=== PATIENT | female | born 2005 | race Two or more races ===

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

== ENCOUNTER 2024-01-05 20:16 | Outpatient (CLI) | payer OTHER, MEDICAID ==
[2024-01-05 20:44] VITALS: BP 111/74
[2024-01-05 20:59] LABS: BILIRUBIN,URINE NEGATIVE (NEGATIVE); GLUCOSE, URINE (UA) NEGATIVE (NEGATIVE); KETONES,URINE (UA) NEGATIVE (NEGATIVE); LEUKOCYTE ESTERASE, URINE NEGATIVE (NEGATIVE); NITRITE,URINE NEGATIVE (NEGATIVE); OCCULT BLOOD,URINE NEGATIVE (NEGATIVE); PROTEIN,URINE NEGATIVE (NEGATIVE); UROBILINOGEN,URINE 0.2 (NORMAL) E.U./dL (NORMAL)
[2024-01-05 21:00] LABS: CLARITY,URINE CLEAR (CLEAR)
--- NOTE | 2024-01-05 21:37 | PROVIDER PROGRESS NOTE ---
- HPI Chief Complaint: Labor (Also n/v.) Current : 18 yo G1 with IUP at 34+ weeks. presents with cramping, n/v. last vomited about 1 hr prior to when she came in. Has not been vomiting for a long time but was enough to have zofran and phenergan rx at home. She is here today with her aunt who has never had children. She just did not feel well today. no bleeding, headache, swelling. baby moving well. no unusual vaginal discharge and then did pass some phelgm-like discharge today and wonders if it is her mucus plug. some pressure but nothing that sounds like contractions. c/b obesity. She is on fluoxetine and just increased the dose. seems this is helping her. Vital Signs Temperature 97.5 F L 01/05/24 20:37 Heart Rate 95 01/05/24 20:37 Respiratory Rate 18 01/05/24 20:37 Blood Pressure 111/74 01/05/24 20:37 - Exam Patient is resting in stretcher, drinking water and says she is tolerating that fine. abdomen is soft not tender. uterus is not tender or firm. no contractions seen on monitor. Urine with specific gravity 1.020. everything else negative. - Procedures OB Procedure Performed: NST Diagnosis/Indication for NST: labor NST Procedure: NST with normal baseline. Reactive for of 32 weeks gestation or more. NST tracing contains at least two heart rate accelerations that are at le ast 15 beats per minute above the baseline rate and lasting at least 15 seconds from onset to return to baseline within a twenty minute period. Service Date of procedure: 01/05/24 Findings: reassuring that she does not seem to be dehydrated significantly, although a bit dry. She does not seem to be in labor. reassured. encouraged to take her zofran if needed. She says her heartburn is bothersome and she has famotidine and tums and she is encouraged to take these so she feels better. encouraged to call if she has questions even after hours we will always be able to be reached. - Plan Plan: routine care. next visit on Saturday.
== END 2024-01-05 21:35 | disposition home or self-care (01) ==
LOC: WFO 20:16 → FBP 20:19 → WFO 21:35
PROVIDERS: ATTEND Obstetrics & Gynecology
DX: O21.2 Late vomiting of pregnancy (principal); O99.891 Other specified diseases and conditions complicating pregnancy; R12 Heartburn; O99.213 Obesity complicating pregnancy, third trimester; Z3A.34 34 weeks gestation of pregnancy
CPT/HCPCS: 59025; 81003; 99213

== ENCOUNTER 2024-01-24 16:03 | Outpatient (CLI) | payer OTHER, MEDICAID ==
[2024-01-24 16:35] LABS: BASOPHILS % (AUTO) 0.3 %; EOSINOPHILS # (AUTO) 0.2 10^3/uL (0.0-0.7); EOSINOPHILS % (AUTO) 1.7 %; HCT - HEMATOCRIT 35.7 % (37.0-47.0); LYMPHOCYTES # (AUTO) 2.8 10^3/uL (1.5-3.5); LYMPHOCYTES % (AUTO) 20.2 %; MEAN CORPUSCULAR HEMOGLOBIN 29.9 pg (27.0-31.0); MEAN CORPUSCULAR HGB CONC 33.6 g/dL (32.0-36.0); MEAN CORPUSCULAR VOLUME 88.8 fL (81.0-99.0); MONOCYTES % (AUTO) 7.5 %; NEUTROPHILS # (AUTO) 9.5 10^3/uL (1.5-6.6); NEUTROPHILS % (AUTO) 69.6 %; PLT - PLATELET COUNT 348 10^3/uL (130-450); RED BLOOD COUNT 4.02 10^6/uL (4.20-5.40); RED CELL DISTRIBUTION WIDTH 11.9 % (12.0-15.0); WHITE BLOOD COUNT 13.7 x10^3/uL (4.8-10.8)
[2024-01-24 16:48] LABS: ALBUMIN 3.5 g/dL (3.2-5.5); ALBUMIN/GLOBULIN RATIO 1.2 (1.0-2.2); BILIRUBIN,TOTAL 0.2 mg/dL (0.2-1.0); CALCIUM 8.8 mg/dL (8.5-10.3); CREATININE 0.5 mg/dL (0.6-1.3); POTASSIUM 3.9 mmol/L (3.5-4.5); TOTAL PROTEIN 6.4 g/dL (6.4-8.9); URIC ACID 6.1 mg/dL (2.3-6.6)
[2024-01-24 16:50] LABS: CREATININE,URINE 239.5 mg/dL; PROTEIN/CREATININE RATIO,URINE 0.1 (<=0.2)
== END 2024-01-24 16:04 | disposition home or self-care (01) ==
LOC: LAB 16:03
PROVIDERS: ATTEND Nurse Practitioner
DX: R03.0 Elevated blood-pressure reading, without diagnosis of hypertension (principal)
CPT/HCPCS: 36415; 80053; 82570; 83615; 84156; 84550; 85025

== ENCOUNTER 2024-01-28 14:23 | Outpatient (CLI) | payer OTHER, MEDICAID ==
--- NOTE | 2024-01-28 19:25 | Ultrasound Report ---
PROCEDURE: OB Follow up INDICATIONS: OBESITY OUTSIDE/PRIOR DATING DATA: Last menstrual period (LMP): 05/03/2023. LMP-based estimated date of delivery (TAZ): 02/07/2024. First dating scan (date and location): 06/25/2023. Estimated date of delivery (TAZ) from first dating scan: 02/13/2024. The below data below was generated using the working TAZ of 02/13/2024 TECHNIQUE: Real-time scanning was performed of the fetus, with image documentation and biometric measurements. Endovaginal scanning: Not performed. COMPARISON: 10/14/2023, 06/25/2023 FINDINGS: General: A single living intrauterine gestation is present. Presentation: Vertex Placenta: Placental position is anterior, without previa. Amniotic fluid index: 13.2 cm, within normal limits for gestational age. heart rate: 132 beats per minute. Maternal cervical canal: Closed and measures 3.36 cm long; normal length is 2.5 cm or more. biometrics: Biparietal diameter: 8.97 cm, 36 weeks, 2 days, 31.9% Head circumference: 32.6 cm, 37 weeks, 0 day, 14.6% Abdominal circumference: 31.9 cm, 35 weeks, 6 days, 16% Femur length: 7.2 cm, 36 weeks, 6 days, 29.8% Estimated gestational age from initial scan: 37 weeks, 5 days Composite gestational age from present scan: 36 weeks, 4 days Estimated weight and percentile: 2897 g, 24.4% Measurement variability in biometric dating: +/- 10 days from 12-20 weeks gestation, +/- 2 weeks from 20-30 weeks gestation, +/- 3 weeks at 30 weeks gestation or more. Other: Not applicable. IMPRESSION: 1. Single live intrauterine gestation with fetus in vertex presentation. heart rate is 132 bpm. Normal amount of amniotic fluid. LALITA equals 13.2 cm. 2. Estimated weight is at 24.4%. Reviewed by: Leonard Hicks MD on 01/28/2024 7:23 PM PDT Approved by: Leonard Hicks MD on 01/28/2024 7:23 PM PDT Station ID: [id number]
== END 2024-01-28 14:24 | disposition home or self-care (01) ==
LOC: DI 14:23
PROVIDERS: ATTEND Nurse Practitioner
DX: O99.213 Obesity complicating pregnancy, third trimester (principal); O26.843 Uterine size-date discrepancy, third trimester; Z3A.36 36 weeks gestation of pregnancy

== ENCOUNTER 2024-02-08 03:53 | Inpatient (IN) | payer OTHER, MEDICAID ==
[2024-02-08] MEDS ORDERED: ONDANSETRON ODT 4 MG TABLET TL PRN (05:58)
[2024-02-08] MEDS ORDERED: miSOPROStoL 200 MCG TABLET BC PRN (06:02)
[2024-02-08] MEDS ORDERED: SODIUM CHLORIDE FLUSH 0.9% 10 ML SYRINGE IVP PRN (06:02)
[2024-02-08] MEDS ORDERED: TERBUTALINE 1 MG/ML VIAL SUBQ PRN (06:02)
[2024-02-08] MEDS ORDERED: LABETALOL 20 MG/4 ML SYRINGE IVP PRN ×3 (06:02)
[2024-02-08] MEDS ORDERED: hydrALAZINE INJ 20 MG/ML VIAL IVP PRN ×2 (06:02)
[2024-02-08] MEDS ORDERED: miSOPROStoL 200 MCG TABLET PR PRN (06:02)
[2024-02-08] MEDS ORDERED: METHYLERGONOVINE 0.2 MG/ML VIAL IM PRN (06:02)
[2024-02-08] MEDS ORDERED: TRANEXAMIC ACID IN NACL 1,000 MG/100 ML BAG IV PRN (06:02)
[2024-02-08] MEDS ORDERED: CARBOPROST TROMETHAMINE 250 MCG/ML VIAL IM PRN (06:02)
[2024-02-08] MEDS ORDERED: NIFEdipine 10 MG CAPSULE PO PRN (06:02)
[2024-02-08] MEDS ORDERED: OXYTOCIN 10 UNIT/ML VIAL IM PRN (06:02)
[2024-02-08] MEDS: LACTATED RINGERS 1,000 ML IV PRN (06:22)
[2024-02-08] MEDS: fentaNYL 100 MCG/2 ML VIAL IVP PRN (06:22)
[2024-02-08] MEDS ORDERED: ONDANSETRON 4 MG/2 ML VIAL ONE (06:27)
[2024-02-08 06:35] LABS: BASOPHILS # (AUTO) 0.1 10^3/uL (0.0-0.1); BASOPHILS % (AUTO) 0.4 %; EOSINOPHILS # (AUTO) 0.1 10^3/uL (0.0-0.7); EOSINOPHILS % (AUTO) 0.6 %; HCT - HEMATOCRIT 40.9 % (37.0-47.0); HGB - HEMOGLOBIN 13.8 g/dL (12.0-16.0); LYMPHOCYTES # (AUTO) 3.3 10^3/uL (1.5-3.5); LYMPHOCYTES % (AUTO) 16.4 %; MEAN CORPUSCULAR HEMOGLOBIN 29.7 pg (27.0-31.0); MEAN CORPUSCULAR HGB CONC 33.7 g/dL (32.0-36.0); MEAN CORPUSCULAR VOLUME 88.1 fL (81.0-99.0); MEAN PLATELET VOLUME 10.9 fL (7.9-10.8); MONOCYTES # (AUTO) 1.2 10^3/uL (0.0-1.0); MONOCYTES % (AUTO) 5.9 %; NEUTROPHILS # (AUTO) 15.1 10^3/uL (1.5-6.6); PLT - PLATELET COUNT 411 10^3/uL (130-450); RED BLOOD COUNT 4.64 10^6/uL (4.20-5.40); RED CELL DISTRIBUTION WIDTH 12.3 % (12.0-15.0); WHITE BLOOD COUNT 19.8 x10^3/uL (4.8-10.8)
[2024-02-08] MEDS ORDERED: ONDANSETRON 4 MG/2 ML VIAL IVP PRN ×3 (06:35→15:13)
[2024-02-08] MEDS ORDERED: LIDOCAINE 2%-EPI 1:100000 20 ML MDV ONE (06:53)
[2024-02-08] MEDS ORDERED: ROPIVACAINE 0.2% 200 MG/100 ML BAG EP ONE (06:53)
[2024-02-08 07:00] LABS: ALBUMIN/GLOBULIN RATIO 1.2 (1.0-2.2); BILIRUBIN,TOTAL 0.4 mg/dL (0.2-1.0); CALCIUM 9.4 mg/dL (8.5-10.3); CREATININE 0.7 mg/dL (0.6-1.3); POTASSIUM 3.8 mmol/L (3.5-4.5); TOTAL PROTEIN 7.4 g/dL (6.4-8.9)
[2024-02-08] MEDS ORDERED: SODIUM CHLORIDE FLUSH 0.9% 10 ML SYRINGE IVP SCH (07:00)
[2024-02-08] MEDS ORDERED: NALOXONE 0.4 MG/ML VIAL IVP PRN (07:45)
[2024-02-08] MEDS ORDERED: ROPIVACAINE 0.2% 200 MG/100 ML BAG EP PRN (07:45)
[2024-02-08] MEDS ORDERED: diphenhydrAMINE INJ 50 MG/ML VIAL IVP PRN (07:45)
[2024-02-08] MEDS ORDERED: ePHEDrine 50 MG/ML VIAL IVP PRN (07:45)
[2024-02-08] MEDS ORDERED: NALBUPHINE 10 MG/ML AMP IVP PRN (07:45)
[2024-02-08] MEDS ORDERED: METOCLOPRAMIDE 10 MG/2 ML VIAL IVP PRN (07:45)
--- NOTE | 2024-02-08 07:53 | ANESTHESIA ---
Pre-Anesthesia VS, & Labs - Diagnosis labor pain - Procedure labor epidural Vital Signs: Temp Pulse Resp BP Pulse Ox O2 Flow Rate 36.9 C 83 20 131/77 H 02/08/24 05:12 02/08/24 04:06 02/08/24 04:06 02/08/24 04:06 Height: 5 ft 5 in Weight (kg): 106.594 kg Body Mass Index: 39.1 BMI Classification: Obese - NPO Other - Is Patient ?: Yes - Lab Results Current Lab Results: Laboratory Tests 02/08/24 06:19: Sodium 134 L, Potassium 3.8, Chloride 103, Carbon Dioxide 19 L, Anion Gap 12.0, BUN 10, Creatinine 0.7, Estimated GFR (MDRD) 108, Glucose 86, Calcium 9.4, Total Bilirubin 0.4, AST 20, ALT 15, Alkaline Phosphatase 191 H, Total Protein 7.4, Albumin 4.0, Globulin 3.4, Albumin/Globulin Ratio 1.2 02/08/24 06:19: WBC 19.8 H, RBC 4.64, Hgb 13.8, Hct 40.9, MCV 88.1, MCH 29.7, MCHC 33.7, RDW 12.3, Plt Count 411, MPV 10.9 H, Neut # (Auto) 15.1 H, Lymph # (Auto) 3.3, [place] # (Auto) 1.2 H, Eos # (Auto) 0.1, Baso # (Auto) 0.1, Absolute Nucleated RBC 0.00, Nucleated RBC % 0.0 02/08/24 06:19: TSH 2.66 Fish Bones: 02/08/24 06:19 02/08/24 06:19 Home Medications and Allergies Active Medications Carboprost Tromethamine (Carboprost Tromethamine 250 Mcg/Ml Vial) 250 mcg IM .ONCE PRN PRN Reason: Hemorrhage Fentanyl (Fentanyl 100 Mcg/2 Ml Vial) 50 mcg IVP Q1H PRN PRN Reason: Severe Pain (score 7-10) Last Admin: 02/08/24 06:22 Dose: 50 mcg Hydralazine HCl (Hydralazine Inj 20 Mg/Ml Vial) 5 - 10 mg IVP Q20M PRN; Protocol PRN Reason: SBP> or= 160 OR DBP> or= 110 Hydralazine HCl (Hydralazine Inj 20 Mg/Ml Vial) 10 mg IVP .ONCE PRN; Protocol PRN Reason: SBP> or= 160 OR DBP> or= 110 Lactated Ringer's (Lr) 500 mls @ 999 mls/hr IV PRN PRN PRN Reason: distress Last Admin: 02/08/24 07:22 Dose: 125 mls/hr Oxytocin/Sodium Chloride (Pitocin/Sodium Chloride) 500 mls @ 999 mls/hr IV PRN PRN; Protocol PRN Reason: POST- HEMORR PREVENTION Tranexamic Acid (Tranexamic 1,000 Mg/100ml-Nacl) 1,000 mg in 100 mls @ 600 mls/hr IV Q30M PRN PRN Reason: EBL >1200mL and within 3hr Labetalol HCl (Labetalol 20 Mg/4 Ml Syringe) 20 - 80 mg IVP Q10M PRN; Protocol PRN Reason: SBP> or= 160 OR DBP> or= 110 Labetalol HCl (Labetalol 20 Mg/4 Ml Syringe) 20 mg IVP .ONCE PRN; Protocol PRN Reason: SBP> or= 160 OR DBP> or= 110 Labetalol HCl (Labetalol 20 Mg/4 Ml Syringe) 20 - 40 mg IVP Q10M PRN; Protocol PRN Reason: SBP> or= 160 OR DBP> or= 110 Lidocaine HCl (Lidocaine 1% 20 Ml Mdv) 20 ml ID .ONCE PRN PRN Reason: PERINEAL REPAIR Stop: 02/11/24 06:03 Methylergonovine Maleate (Methylergonovine 0.2 Mg/Ml Vial) 0.2 mg IM .ONCE PRN PRN Reason: Hemorrhage Misoprostol (Misoprostol 200 Mcg Tablet) 600 mcg BC .ONCE PRN PRN Reason: Hemorrhage Misoprostol (Misoprostol 200 Mcg Tablet) 800 mcg ND .ONCE PRN PRN Reason: Hemorrhage Nifedipine (Nifedipine 10 Mg Capsule) 10 - 20 mg PO Q20M PRN; Protocol PRN Reason: SBP> or= 160 OR DBP> or= 110 Ondansetron HCl (Ondansetron Odt 4 Mg Tablet) 4 mg TL Q4HR PRN PRN Reason: Nausea / Vomiting Ondansetron HCl (Ondansetron 4 Mg/2 Ml Vial) 4 mg IVP Q6HR PRN PRN Reason: Nausea / Vomiting Oxytocin (Oxytocin 10 Unit/Ml Vial) 10 unit IM .ONCE PRN PRN Reason: Step One if no IV access. Sodium Chloride (Sodium Chloride Flush 0.9% 10 Ml Syringe) 10 ml IVP PRN PRN PRN Reason: NEEDED PER PROVIDER ORDERS Sodium Chloride (Sodium Chloride Flush 0.9% 10 Ml Syringe) 10 ml IVP Q8H ANABELA Terbutaline Sulfate (Terbutaline 1 Mg/Ml Vial) 0.25 mg SUBQ .ONCE PRN PRN Reason: Tachystole No122/Iron/Folic Acid [ Multi Tablet] 1 each PO DAILY 07/15/23 FLUoxetine [PROzac] 10 mg PO DAILY 10/26/23 Famotidine [Acid Spa Attendant] 20 mg PO DAILY 10/26/23 Allergies/Adverse Reactions: Allergies Allergy/AdvReac Type Severity Reaction Status Date / Time shrimp Allergy Unknown Verified 11/19/23 18:53 Anes History & Medical History - Anesthetic History Anesthesia Complications: reports: No previous complications Family history of Anesthesia Complications: Denies Family history of Malignant Hyperthermia: Denies - Medical History Cardiovascular: reports: None Pulmonary: reports: Asthma Gastrointestinal: reports: GERD Urinary: reports: None Neuro: reports: Headaches Musculoskeletal: reports: None Endocrine/Autoimmune: reports: Type 2 diabetes Blood Disorders: reports: None Skin: reports: None Smoking Status: Never smoker Psychosocial: reports: No issues indicated History of Cancer?: No - Surgical History Eyes Ears Nose Throat (EENT): reports: Tonsil/Adenoidectomy Exam General: Alert, Oriented x3, Cooperative Dental: WNL Mouth Openin Fingerbreadth Neck Mobility: Normal Mallampati classification: III Thyromental Distance: 4-6 cm Respiratory: Lungs clear Cardiovascular: Regular rate Plan Anesthesia Type: Epidural Consent for Procedure(s) Verified and Reviewed: Yes Code Status: Attempt Resuscitation ASA classification: 2-Mild systemic disease Is this case an emergency?: No
[2024-02-08] MEDS ORDERED: LIDOCAINE-MPF 2% 5 ML VIAL ONE (08:07)
--- NOTE | 2024-02-08 08:31 | HISTORY & PHYSICAL EXAMINATION ---
Admit History - Visit Reason Visit Reason: Contractions - : 1 Parity: 0 Premature: 0 Ectopic: 0 : 0 Care: positive: [facility] Risk/History: positive: None Complications This : positive: None Smoking Status: Never smoker - Mother's Labs Mother's Blood Type: positive: O Mother's RH: positive: Positive GBS: positive: Group B Step Negative Rubella Status: positive: Immune - Other Maternal History Other Maternal History: 18 yo @ 39+2 weeks gestation by 6+5 week ultrasound (inconsistent with LMP) presents to L&D for labor triage at about 0300. Contractions started about 22:00 last night, she was able to sleep just a few hours but the contractions continued to get closer together and more intense. Upon arrival to L&D she was 3cm and progressed quickly to 5cm by 0600 and was admitted for labor. Elevated BP, likely associated with pain. Had elevated BP early in and an additional elevated BP at term. May have an aspect of both chronic hypertension and gestational hypertension however did not meet criteria for either at the time of admission. No right upper quadrant pain, significant headaches or visual disturbances. Nausea, occasional clear emesis. EFW from recent u/s: 01/28/24: 2897 g, 24.4% Maternal weight gain through : 53# Admission labs: serum creatinine: 0.7, AST: 20, ALT: 15, HGB: 13.8, HCT 40.9%, PLT 411 LMP: 05/03/2023 TAZ by LMP: 02/06/2023 06/25/2023 / 6+5/ NOT /C/W dates >5 (6 days) difference at less than 8 6/7 weeks Final TAZ: 02/13/2024 FOB: [place] She has from her parents. Danny is not working. sex: It's A GIRL! Problems: Bipolar disorder, elevated BP at initial OB visit, complicated relationship with FOB. - 12/19: fluoxetine increased to 20mg, referral for counseling obese: taking ld ASA, does not look like we have discussed NSTs with her. Pre- Weight: 185lb BMI: 33.24 Blood type: O+ Antibody: Negative CBC: PLT 308 HCT 38.3 HGB 13.0 RUB: immune VZV: immune HBsAg: Negative HepC: NR RPR/AB-EIA: NR HIV: NR PAP: under 21 GC/CT: 07/19/2023 negative HSV: denies Genetic testing: [id number] ordered but not done. Covid: vaccinated Flu:out of season FAS: WNL Placenta: anterior no previa Cord: 3VC LALITA: WNL EFW: 54.2% 50gm OGCT: 121 TDAP:Given early at 26 weeks 11/07 Breast Pump: 11/22/2023 3rd trimester HCT 34.7 HGB 11.8; PLT 334 GBS/GCCT: 01/17/2024 Negative/ Negative Physical exam: Normocephalic, atraumatic Heart RRR Lungs CTAB Abdomen gravid, soft, nontender. EFW 2900 FHR baseline 140's, moderate variability, + accelerations, no decelerations Contractions palpate moderate every 3-6 minutes with soft resting tone SVE 5cm. vertex. Bilateral LE's no edema Assessment: 18 yo G1POOO @ 39+2 weeks gestation by 6+2 wk U/S Active labor FHR 140, primarily category I, intermittent category II. GBS NEG Plan: Admit to [facility] for Expectant management Continuous monitoring Maintain epidural and communicate with anesthesia for pain management. Anticipate . Patient verbally consents to my participation in her care in my role as a student nurse asset protection detective. ALF Duckworth, Student Nurse Mechanical Design Engineer Products (Stacey Lucas) Agree with plan for patient. Evaluated patient with ALF Lucas. Simba Graham MD (Simba Graham) - HPI Current EDU 02/13/24 Gestation 39 Weeks and 2 Days 1 Vital Signs Temperature 98.4 F 02/08/24 04:06 Heart Rate 83 02/08/24 04:06 Respiratory Rate 20 02/08/24 04:06 Blood Pressure 131/77 H 02/08/24 04:06 Temperature 99.9 F 02/08/24 16:13 Heart Rate 88 02/08/24 16:13 Respiratory Rate 16 02/08/24 16:13 Blood Pressure 126/65 02/08/24 16:13 O2 Saturation If not protocol: Oxygen Flow, liters/minute - NST Procedure NST Procedure Start Time 08:46 Stop Time 09:35 Meds/Allgy - Home Medications Home Medications: Ambulatory Orders Medication Instructions Recorded Confirmed No122/Iron/Folic Acid 1 each PO DAILY 07/15/23 10/26/23 [ Multi Tablet] FLUoxetine [PROzac] 10 mg PO DAILY 10/26/23 10/26/23 Famotidine [Acid Mannequin Refinisher] 20 mg PO DAILY 10/26/23 10/26/23 Aspirin Chewable [St Rk 1 tab PO 02/08/24 Aspirin] - Allergies Allergies/Adverse Reactions: Allergies Allergy/AdvReac Type Severity Reaction Status Date / Time shrimp Allergy Unknown Verified 11/19/23 18:53 Physical - Abdominal Exam Contraction Frequency (min/apart): q2 minutes Contraction Intensity: positive: Strong Uterine Resting Tone: positive: Soft - Monitoring Strip Review: positive: Category I, Category II - Presentation Presentation: positive: Vertex - Vaginal Exam Membranes: positive: Membranes intact Dilation (in cm): 7 Effacement (%): 80 Station: positive: -2 Cervical Position: positive: Anterior - Speculum Exam Speculum Exam Performed: positive: No - Abdominal Exam Vital Signs: Temp Pulse Resp BP Pulse Ox O2 Flow Rate 99.9 F 88 16 126/65 02/08/24 16:13 02/08/24 16:13 02/08/24 16:13 02/08/24 16:13 Plan for Labor - Plan For Labor I expect patient to be DC'd or transferred within 96 hours.: Yes
[2024-02-08] MEDS: OXYTOCIN/SODIUM CHLORIDE 500 ML IV PRN (09:10)
[2024-02-08] MEDS: lidocaine 1% 20 ML MDV ID PRN (09:15)
--- NOTE | 2024-02-08 10:24 | DELIVERY NOTE ---
<Stacey Lucas - Last Filed: 02/08/24 10:26> Delivery Note - Labor Labor: positive: Spontaneous - Infant Delivery Method Delivery Method: positive: Spontaneous vaginal delivery - Presentation Presentation: positive: Vertex, OA - occiput anterior, KIARA - left occiput anterior - Nuchal Cord Nuchal Cord: positive: None - Anesthetic Anesthetic Type: - Amniotic Fluid Description Amniotic Fluid Description: positive: Clear - Episiotomy Type Episiotomy Type: positive: None - Laceration Laceration: positive: None - Delivery Outcome Delivery Outcome: positive: Livebirth - [place] sex: positive: Female - Cord Cord: positive: 3 vessels - Placenta Placenta: positive: Intact, Spontaneous - Estimated Blood Loss Estimated Blood Loss (in cc): 100 - Post Delivery Events Post Delivery Events: positive: No post delivery events - Delivery Comments (Free Text/Narrative) Delivery Comments (Free Text/Narrative): This 18-year-old by 6 week ultrasound, presented to L&D in active labor this mornign and quickly progressed from 3cm to Complete. Vertex presentation confirmed by exam. GBS negative. Epidural placed upon maternal request. FHR pattern demonstrated 135 baseline in a category I-II prior to short second stage. Rapid descent. Intermittent maternal tracing. BP significantly elevated through advanced labor course. Epidural not adequately controlling pain, likely secondary to advanced progression. Patient frequently grasping siderail and moving arm through, and irritated by, BP cycling. AROM occurred at 0752. She then progressed to complete/complete @ 0852 and ready to deliver. Second stage began @ 0854. : Normal spontaneous vaginal delivery of a viable female on 02/08/2024 at 0904. No nuchal cord. The was placed on maternal abdomen, stimulated, dried and placed skin to skin. Apgars 8 & 9 at 1 & 5 minutes. Admission weight: 3109g. The umbilical cord was allowed to stop pulsating at which time it was doubly clamped by delivering provider and cut by FOB. 3VC. Cord blood was obtained. Fundal massage and gently cord traction applied for active management of the third stage, placenta delivered spontaneously and intact at 0904. EBL 100cc. Placenta appeared intact and was WAS NOT sent to pathology. 30U Pitocin administered via IV for hemostasis and allowed to run freely. Uterine massage was performed until uterus was deemed firm. Perineum intact. Superficial abrasion to vaginal introidus. Homeostatic with pressure. No repair. Immediately following delivery, BP returned closer to baseline. Remains elevated but not severe will continue to monitor for severe features. Needle and sponge counts were correct. Uterine fundus firm and there is no excessive bleeding. Tissues well approximated. Family bonding well. Both mother and baby are in stable condition. Patient verbalized consent for my participation in her delivery in my role as Student Nurse Gift Packer. ALF Duckworth, Student Nurse Gift Packer <Simba Graham - Last Filed: 02/08/24 16:34> Delivery Note - Delivery Comments (Free Text/Narrative) Delivery Comments (Free Text/Narrative): Present for delivery of of viable female . No perineal repair. Elevated blood pressures noted with second stage and poor pain control. Continue to monitor for signs of preeclampsia with severe features. Simba Graham MD
[2024-02-08] MEDS ORDERED: WITCH HAZEL/GLYCERIN 1 PAD TOP PRN (15:13)
[2024-02-08] MEDS ORDERED: CALCIUM CARBONATE CHEW 500 MG TABLET PO PRN (15:13)
[2024-02-08] MEDS ORDERED: SIMETHICONE CHEW 80 MG TABLET PO PRN (15:13)
[2024-02-08] MEDS: IBUPROFEN 600 MG TABLET PO SCH (15:23)
[2024-02-08] MEDS: ACETAMINOPHEN 500 MG TABLET PO SCH (15:24)
[2024-02-08] MEDS ORDERED: LACTATED RINGERS 1,000 ML IV SCH (16:00)
[2024-02-08] MEDS: DOCUSATE SODIUM 100 MG CAPSULE PO PRN (21:27)
--- NOTE | 2024-02-09 06:38 | PROVIDER PROGRESS NOTE ---
<Stacey Lucas - Last Filed: 02/09/24 08:02> Subjective - Prog Note Date Prog Note Date: 02/09/24 Prog Note Time: 06:35 - Subjective Pt reports feeling: Improved Subjective: Patient reports she is doing well. Comfortable WITHOUT pain management Lochia appropriate. Denies heavy bleeding. Ambulating some. Was able to sleep overnight until breakfast Tolerating oral intake. Diet: Regular. Voiding without difficulty. Passing flatus. Denies BM. Patient is bonding with baby in room Bottle feeding. Maternal preference. Declines any further assistance or teaching. Denies feeling lightheaded, dizzy or excessively fatigued. No headaches or changes to vision. No RUQ pain. Objective - Vital Signs/Intake & Output Vital Signs: Vital Signs x48h Temp Pulse BP 02/09/24 04:07 37 C 82 131/66 H 02/08/24 23:25 37 C 84 135/73 H Intake & Output: Intake & Output 02/06/24 02/07/24 02/08/24 02/09/24 23:59 23:59 23:59 23:59 Intake Total 1329.167 Output Total 900 Balance 429.167 - Lab Results Fish Bones: 02/08/24 06:19 02/08/24 06:19 Other Labs: Lab Results x24hrs 02/08/24 02/08/24 02/08/24 Range/Units 06:45 06:19 06:19 WBC 19.8 H (4.8-10.8) x10^3/uL RBC 4.64 (4.20-5.40) 10^6/uL Hgb 13.8 (12.0-16.0) g/dL Hct 40.9 (37.0-47.0) % MCV 88.1 (81.0-99.0) fL MCH 29.7 (27.0-31.0) pg MCHC 33.7 (32.0-36.0) g/dL RDW 12.3 (12.0-15.0) % Plt Count 411 (130-450) 10^3/uL MPV 10.9 H (7.9-10.8) fL Neut # (Auto) 15.1 H (1.5-6.6) 10^3/uL Lymph # (Auto) 3.3 (1.5-3.5) 10^3/uL Wallace # (Auto) 1.2 H (0.0-1.0) 10^3/uL Eos # (Auto) 0.1 (0.0-0.7) 10^3/uL Baso # (Auto) 0.1 (0.0-0.1) 10^3/uL Absolute Nucleated RBC 0.00 x10^3/uL Nucleated RBC % 0.0 /100WBC Sodium 134 L (135-145) mmol/L Potassium 3.8 (3.5-4.5) mmol/L Chloride 103 (101-111) mmol/L Carbon Dioxide 19 L (21-32) mmol/L Anion Gap 12.0 (6-13) BUN 10 (6-20) mg/dL Creatinine 0.7 (0.6-1.3) mg/dL Estimated GFR (MDRD) 108 (>89) Glucose 86 (74-104) mg/dL Calcium 9.4 (8.5-10.3) mg/dL Total Bilirubin 0.4 (0.2-1.0) mg/dL AST 20 (10-42) IU/L ALT 15 (10-60) IU/L Alkaline Phosphatase 191 H (42-121) IU/L Total Protein 7.4 (6.4-8.9) g/dL Albumin 4.0 (3.2-5.5) g/dL Globulin 3.4 (2.1-4.2) g/dL Albumin/Globulin Ratio 1.2 (1.0-2.2) TSH (0.34-5.60) uIU/mL Blood Type O POSITIVE Antibody Screen NEGATIVE 02/08/24 Range/Units 06:19 WBC (4.8-10.8) x10^3/uL RBC (4.20-5.40) 10^6/uL Hgb (12.0-16.0) g/dL Hct (37.0-47.0) % MCV (81.0-99.0) fL MCH (27.0-31.0) pg MCHC (32.0-36.0) g/dL RDW (12.0-15.0) % Plt Count (130-450) 10^3/uL MPV (7.9-10.8) fL Neut # (Auto) (1.5-6.6) 10^3/uL Lymph # (Auto) (1.5-3.5) 10^3/uL Wallace # (Auto) (0.0-1.0) 10^3/uL Eos # (Auto) (0.0-0.7) 10^3/uL Baso # (Auto) (0.0-0.1) 10^3/uL Absolute Nucleated RBC x10^3/uL Nucleated RBC % /100WBC Sodium (135-145) mmol/L Potassium (3.5-4.5) mmol/L Chloride (101-111) mmol/L Carbon Dioxide (21-32) mmol/L Anion Gap (6-13) BUN (6-20) mg/dL Creatinine (0.6-1.3) mg/dL Estimated GFR (MDRD) (>89) Glucose (74-104) mg/dL Calcium (8.5-10.3) mg/dL Total Bilirubin (0.2-1.0) mg/dL AST (10-42) IU/L ALT (10-60) IU/L Alkaline Phosphatase (42-121) IU/L Total Protein (6.4-8.9) g/dL Albumin (3.2-5.5) g/dL Globulin (2.1-4.2) g/dL Albumin/Globulin Ratio (1.0-2.2) TSH 2.66 (0.34-5.60) uIU/mL Blood Type Antibody Screen - Other Results/Comments Other Results/Comments: General: Alert, oriented, no apparent distress. Cardiovascular: No edema. Regular rate. Regular rhythm. Lungs: No increased work of breathing. Abdomen: Uterus firm. Below umbilicus. No guarding or rebound tenderness. Extremities: No pain on palpation. Distal pulses intact. VZV: immune Rubella: immune ABX Reporting Has patient been on IV antibiotics over the past 48 hours?: No Assessment/Plan - Problem List (1) Vaginal delivery Impression: Assessment and Plan day 1. 18o s/p on 02/08/2024 following spontaneous onset of labor. PPD #1 doing well. - Routine care - bottle feeding. Reviewed bottlefeeding breast care. - Anticipate discharge tomorrow ALF Duckworth, Student Nurse Power Transformer Repairer (2) induced hypertension, delivered, current hospitalization Impression: BP normalized after delivery. Most recent BP 130's/60's-70's No edema Denies current severe features. Will continue to monitor. Will repeat labs as indicated. (3) Major depressive disorder, recurrent, severe with psychotic features Impression: Mood is good. Rested well through the night Discussed depression at length. Continue SSRI Encourage counseling pp. <Simba Graham A - Last Filed: 02/09/24 08:55> Subjective - Subjective Subjective: Acute assessment of this mother a. N plan for discharge tomorrow as we continue with breast-feeding support education. course uneventful. Simba Graham MD Objective - Vital Signs/Intake & Output Vital Signs: Vital Signs x48h Temp Pulse Resp BP BP Pulse Ox 02/09/24 08:00 97.7 F 83 16 139/80 H 98 02/09/24 04:07 98.6 F 82 131/66 H Intake & Output: Intake & Output 02/06/24 02/07/24 02/08/24 02/09/24 23:59 23:59 23:59 23:59 Intake Total 1329.167 Output Total 900 Balance 429.167 - Lab Results Fish Bones: 02/08/24 06:19 02/08/24 06:19
[2024-02-09] MEDS: FLUoxetine 10 MG CAPSULE PO SCH (16:20)
--- NOTE | 2024-02-10 08:38 | Discharge Plan ---
Discharge Plan Problem Reviewed?: Yes Disposition: Home, Self Care Condition: Good Diet: Regular Activity Restrictions: No Restrictions Shower Restrictions: No Weight Bearing: Full Weight Instruction Topics: Bottle Feed How To, Vaginal No Smoking: If you smoke, Please STOP! Call for help. Follow-up with: Stacey Lucas ARNP [Provider Admit Priv/Credential] -
--- NOTE | 2024-02-10 08:39 | DISCHARGE SUMMARY ---
Discharge Summary Admit Date: 02/08/24 Discharge Date: 02/10/24 Discharging Provider: Dr. Radha Vazquez Condition at Discharge: Good Discharge Disposition: 01 Home, Self Care - DIAGNOSES Admission Diagnoses: Diagnosis on admission: 18 yo G1POOO @ 39+2 weeks gestation by 6+2 wk U/S Active labor FHR 140, primarily category I, intermittent category II. GBS NEG O POS VZV: Immune Rubella: Immune Diagnosis on Discharge 18 yo S/P of viable female over intact perineum PPD #2 Bottle feeding Gestational hypertension Brief History: She is a patient of [facility] who presented to [facility] in active labor. She quickly progressed from 3 to complete. Labor progressed without pharmaceutical intervention. Epidural for pain management, but given quick progression, limited relief. BP elevated throughout labor and delivery, likely secondary to pain and labor/pushing efforts. Resolved to baseline in the immediate period. She spontaneously delivered a viable female Apgars 8 & 9 at 1 & 5 minutes. Admission weight: 3109g. On day 2 of life, was found to have a clavical fracture but otherwise doing well. EBL 100 ml. intact perineum. She has been doing well in her course. She is ambulating and tolerating a regular diet, was able to rest well throughout the night. Bottle feeding infant. Discussed bottlefeeding breast care. She is urinating without difficulty and her lochia is normal. Her pain is well controlled without narcotic management. She will be discharged to home today on day 2 with prescriptions for IBU and colace. Recommended to follow-up in one week in person at women's clinic. She has been given precautions to call if she has any any new or worsening sx such as fevers, chills, abdominal pain, increasing bleeding, or foul smelling vaginal lochia. Given hypertention at the time of delivery, preeclamptic precautions at length. Verbalizes feeling comfortable being discharged to home/self care. Well supported by partner and aunt. ALF Duckworth, Student Nurse Geospatial Information Scientist - ALLERGIES Allergies/Adverse Reactions: Allergies Allergy/AdvReac Type Severity Reaction Status Date / Time shrimp Allergy Unknown Verified 11/19/23 18:53 - MEDICATIONS Home Medications: Ambulatory Orders Medication Instructions Recorded Confirmed No122/Iron/Folic Acid 1 each PO DAILY 07/15/23 10/26/23 [ Multi Tablet] FLUoxetine [PROzac] 10 mg PO DAILY 10/26/23 10/26/23 Famotidine [Acid Fly Maker] 20 mg PO DAILY 10/26/23 10/26/23 Aspirin Chewable [St Rk 1 tab PO 02/08/24 Aspirin] - PHYSICAL EXAM AT DISCHARGE General Appearance: positive: No acute distress Respiratory: positive: No respiratory distress Peripheral Pulses: positive: 2+ Abdomen: positive: Non-tender, Other (FF below umbilicus. ) Skin: positive: Color nml Extremities: positive: Full ROM Neurologic/Psychiatric: positive: Motor nml, Sensation nml - LABS Result Diagrams: 02/08/24 06:19 02/08/24 06:19 - QUALITY (Female Hip Fx Only) Was patient sent home on osteoporosis medication?: No - TIME SPENT Time Spent in Discharge (Minutes): 20
[2024-02-10 08:41] VITALS: O2SAT 98
[2024-02-10 11:34] VITALS: BP 133/78
--- NOTE | 2024-02-10 11:51 | Labor Flowsheet ---
Labor Flowsheet Datetime Report Generated by CPN: 02/10/2024 11:50 Datetime: 02/10/2024 07:52 VITAL SIGNS NBP Sys/Mirella/Mean (mmHg): 133 : 79 : 91 Pulse: 84 Datetime: 02/09/2024 22:24 SpO2 (%): 99 Datetime: 02/08/2024 13:35 Stage of : Temperature (C): 36.4 Temperature Route: Oral Datetime: 02/08/2024 11:30 Respirations: 14 Datetime: 02/08/2024 09:37 Membranes Ruptured Date/Time: 02/08/2024 07:52 Amniotic Fluid Odor: Normal Datetime: 02/08/2024 09:30 LaborFlag: Labor Datetime: 02/08/2024 09:10 Patient Care Comments: placenta Datetime: 02/08/2024 09:00 UTERINE ACTIVITY Monitor Mode: Palpation Frequency (min): 3-5 Quality: Strong Resting Tone (Palpate): Relaxed Datetime: 02/08/2024 08:54 STAGE 2 Pushing: Urge to Push Pushing Position: Pushing with Contractions Datetime: 02/08/2024 08:52 VAGINAL EXAM Dilatation (cm): 10.0 Effacement (%): 100 Station: 2 Exam by: ALF Cooper Datetime: 02/08/2024 08:45 Pattern: Normal: <= 5 Contractions in 10 Minutes Contraction Comments: Pt refusing TOCO adjustment ASSESSMENT A Monitor Mode: External US FHR Baseline Rate : 135 Variability: Moderate 6-25 bpm Datetime: 02/08/2024 08:30 Monitor Interventions for UA: [place] Adjusted Duration (sec): 50-70 Datetime: 02/08/2024 08:22 Comments: RN educating pt on importance of monioring FHT and Contraction pattern. Datetime: 02/08/2024 08:18 Pain Coping: Breathing Through Contractions Datetime: 02/08/2024 08:13 Monitor Interventions for FHR: Ultrasound Adjusted Datetime: 02/08/2024 08:11 COMMUNICATION Communication: Call/Page Placed to Provider Communication Comments: Dr. Lucero updated on patient and FHT strip. MD states she is nearby and w ill plan to attend delivery. Datetime: 02/08/2024 07:56 PAIN Pain Scale: 10 Pain Type: Contraction Pain Location: Abdomen; Back; Perineum Anesthesia Comments: MARYAN Leavitt at bedside to adjust edpidural Datetime: 02/08/2024 07:52 Membranes Rupture Method: Spontaneous Amniotic Fluid Color: Clear Amniotic Fluid Amount: Moderate Cervix, Consistency: Soft Membrane Comments: upon SVE Datetime: 02/08/2024 07:49 Patient Position/Activity: Left Lateral Datetime: 02/08/2024 07:25 ANESTHESIA Epidural Positioning: Side Lying Datetime: 02/08/2024 07:21 Epidural Procedure: Test Dose Datetime: 02/08/2024 07:02 PROCEDURE TIME OUT Procedure Type: epidural Procedure Verify: Correct Patient Identity; Correct Side and Site are Marked; Accurate Procedure Co nsent Form; Agreement on Procedure to be Done; Correct Patient Position; Relevant Images and Results are Properly Labeled and Displayed Datetime: 02/08/2024 06:14 PATIENT CARE IV/Blood Work: New IV Bag Hung Datetime: 02/08/2024 06:00 Accelerations: 15X15 Decelerations: None Category: Category I
== END 2024-02-10 11:00 | disposition home or self-care (01) | DRG 807 ==
LOC: FBP 03:53 → WFO 03:53 → FBP 05:48 → WFO 06:01 → FBP 06:02
PROVIDERS: ADMIT Obstetrics & Gynecology; ATTEND Obstetrics & Gynecology
PROC: 10E0XZZ Delivery of Products of Conception, External Approach (ICD-10-PCS; principal; 2024-02-08)
PROC: 10907ZC Drainage of Amniotic Fluid, Therapeutic from Products of Conception, Via Natural or Artificial Opening (ICD-10-PCS; 2024-02-08)
DX: O13.4 Gestational [pregnancy-induced] hypertension without significant proteinuria, complicating childbirth (principal); Z37.0 Single live birth; Z3A.39 39 weeks gestation of pregnancy; Z56.0 Unemployment, unspecified; O99.344 Other mental disorders complicating childbirth; F31.9 Bipolar disorder, unspecified; O99.214 Obesity complicating childbirth; O71.82 Other specified trauma to perineum and vulva
CPT/HCPCS: 36415; 59409; 80053; 84443; 85025; 86850; 86900; 86901; 99215; A9270; J7120